=== PATIENT | female | born 1970 | race Caucasian/White ===

== ENCOUNTER 2017-10-07 09:05 | Emergency (ER) | payer BC ==
[2017-10-07] MEDS ORDERED: SODIUM CHLORIDE 0.9% 1000ML 1,000 ML IVS ONE (09:34)
[2017-10-07] MEDS ORDERED: PROMETHAZINE HCL INJ 12.5 MG in SODIUM CHLORIDE 0.9% 50ML 50 ML IVPB ONE (09:34)
[2017-10-07] MEDS ORDERED: fentaNYL CITRATE INJ 50 MCG/ML AMP IV ONE ×5 (09:35→14:23)
--- NOTE | 2017-10-07 09:38 | ED.PDOC ---
History of Present Illness - General Chief Complaint: Abdominal Pain Time Seen by Provider: 10/07/17 09:32 Information Source: patient Exam Limitations: no limitations - History of Present Illness Abdominal Pain Onset Location: RLQ, LLQ Pain Radiation: no radiation Quality: severe, cramping, intermittent Timing/Duration: 4-6 hours Improving Factors: nothing Worsening Factors: nothing Associated Symptoms: diarrhea, fever/chills, nausea/vomiting, weakness Review of Systems - Review of Systems Constitutional: States: chills, weakness EENTM: States: no symptoms reported Respiratory: States: no symptoms reported Cardiology: States: no symptoms reported Gastrointestinal/Abdominal: States: abdominal pain, diarrhea - Bloody, nausea Genitourinary: States: no symptoms reported Musculoskeletal: States: no symptoms reported Skin: States: no symptoms reported Neurological: States: no symptoms reported Endocrine: States: no symptoms reported Hematologic/Lymphatic: States: blood clots Past Medical History (General) - Patient Medical History Hx Stroke: Yes - 2008 Hx Cardiac Disorders: - 2018 - Hx blood clot (R) groin Hx Congestive Heart Failure: No Hx Hypertension: - Prior to 2008 - had been on BP meds Hx Diabetes: No Hx Gastroesophageal Reflux: - Hx diverticulitis Hx MRSA: No - Vaccination History Hx Influenza Vaccination: No Hx Pneumococcal Vaccination: No - Social History Hx Tobacco Use: No Hx Alcohol Use: No Family Medical History - Family History Mother Living Status: Still Living Hx Family Hypertension: Yes Hx Family Cancer: Yes - Breast CA w/liver METs Physical Exam - Physical Exam General Appearance: Alert, Obvious distress Eyes, Ears, Nose, Throat Exam: PERRL/EOMI, pharynx normal Respiratory: chest non-tender, lungs clear, normal breath sounds, no respiratory distress Cardiovascular/Chest: normal peripheral pulses, regular rate, rhythm, no edema Peripheral Pulses: No deficit Gastrointestinal/Abdominal: normal bowel sounds, soft, tenderness - without guarding or rebound Extremity: normal range of motion, non-tender, normal inspection, no pedal edema Skin Exam: normal color, warm/dry Lymphatic: no adenopathy Progress - EKG/XRAY/CT XRAY: abdomen CT: abd/pelvis CT Ordered: Yes CT Interpretation Call Back: Yes - colitis from transverse to rectosigmoid Departure - Departure Clinical Impression: Colitis Disposition: Discharge to Home or Self Care Departure Forms: ED Discharge - Pt. Copy, Patient Portal Self Enrollment Instructions: DI for Abdominal Pain-Adult Prescriptions: Tramadol HCl 50 mg PO Q4HR PRN #15 tab PRN Reason: Pain tiZANidine [Zanaflex] 4 mg PO Q6HR PRN #15 tab PRN Reason: Moderate Pain levoFLOXacin [Levaquin] 500 mg PO DAILY #4 tab Promethazine Tab [Phenergan Tablet] 25 mg PO .Q4H PRN #12 tab PRN Reason: Nausea Home Medications: Ambulatory Orders Clopidogrel Bisulfate [Plavix] 75 mg PO DAILY 10/07/17 Promethazine Tab [Phenergan Tablet] 25 mg PO .Q4H PRN #12 tab 10/07/17 Tramadol HCl 50 mg PO Q4HR PRN #15 tab 10/07/17 Tramadol HCl [Tramadol HCl] 50 - 100 mg PO TID PRN 10/07/17 levoFLOXacin [Levaquin] 500 mg PO DAILY #4 tab 10/07/17 tiZANidine [Zanaflex] 4 mg PO Q6HR PRN #15 tab 10/07/17 tiZANidine [Zanaflex] 4 mg PO TID PRN 10/07/17
[2017-10-07] MEDS ORDERED: PROMETHAZINE HCL INJ 25 MG/ML VIAL ONE (09:59)
[2017-10-07] MEDS ORDERED: SODIUM CHLORIDE 0.9% 50ML 50 ML ONE (10:00)
--- NOTE | 2017-10-07 10:08 | RAD ---
EXAM DESCRIPTION: KUB CLINICAL HISTORY: lower abd pain with diarrhea COMPARISON: None Available. TECHNIQUE: KUB FINDINGS: There is an unremarkable bowel gas pattern. There is no mass or calculus observed. IMPRESSION: Normal. Electronically signed by: Nabeel Vieyra MD 10/07/2017 10:07 AM CDT
--- NOTE | 2017-10-07 14:31 | CT ---
PROCEDURE: Abdomen/Pelvis w/Contrast HISTORY: abd pain Indication: Same as above Comparison: None . Technique: CT of the abdomen and pelvis was done with intravenous contrast. Images were obtained from the lung base to the level of the pubic symphysis in axial plane, followed by orthogonal sagittal and coronal reconstruction. Oral contrast was not given for the study. The patient was injected with radiographic contrast intravenously, without any documented immediate adverse reactions. This exam was performed according to our departmental dose-optimization program, which includes automated exposure control, adjustment of the mA and/or KV according to the patient's size and/or use of iterative reconstruction technique. FINDINGS: Images through the lung bases do not show any focal infiltrates or pleural effusions. The liver, gallbladder, pancreas, spleen and the bilateral adrenal glands appear unremarkable. The bilateral kidneys enhance with contrast in a normal fashion. The urinary bladder is unremarkable . The bilateral ureters and the bilateral periureteral soft tissues and fat planes are unremarkable. The small bowel appears unremarkable, without any evidence of small bowel obstruction or bowel wall thickening. There is no CT evidence of pericecal inflammatory change or ileocecal mesenteric adenitis. The appendix is not visualized and is probably surgically absent The ileocecal junction appears unremarkable. There is diffuse thickening of the wall of the large bowel from the level of proximal transverse colon to the level of the rectosigmoid junction and suspicious for diffuse colitis, which may be due to infectious or inflammatory etiology. The splenic and portal veins are of normal caliber, without any filling defects. There is no pathological lymphadenopathy in the retroperitoneum or in the pelvic region. There is no evidence of free fluid or free air in the abdomen or the pelvic region. There is no clinically significant abdominal aortic aneurysm. There is no clinically significant inguinal or ventral hernia. There is prior hysterectomy The visualized lumbar spine is unremarkable . The paravertebral soft tissues are unremarkable. The remainder of the pelvic structures are unremarkable. IMPRESSION: There is diffuse thickening of the wall of the large bowel from the level of proximal transverse colon to the level of the rectosigmoid junction and suspicious for diffuse colitis, which may be due to infectious or inflammatory etiology.. Location of Interpretation: [facility] Electronically signed by: Alberto Posada MD 10/07/2017 2:30 PM CDT Workstation: [id number]
[2017-10-07] MEDS ORDERED: levoFLOXacin 500 MG TAB PO ONE (14:51)
[2017-10-07] MEDS ORDERED: DICYCLOMINE HCL 20 MG TAB PO ONE (14:51)
[2017-10-07 16:27] VITALS: BP 123/67; TEMP 98.6; O2SAT 98
== END 2017-10-07 15:15 | disposition home or self-care (01) ==
LOC: ER 09:05
DX: K52.9 Noninfective gastroenteritis and colitis, unspecified (principal); Z87.19 Personal history of other diseases of the digestive system; Z86.73 Personal history of transient ischemic attack (TIA), and cerebral infarction without residual deficits; Z86.718 Personal history of other venous thrombosis and embolism
CPT/HCPCS: 36415; 74018; 74177; 80053; 83605; 83690; 85025; 85610; 85730; 87324; 87449; A4216; J2550; J3010; J7030